=== PATIENT | male | born 1940 | race Caucasian/White ===

== ENCOUNTER 2020-01-19 03:59 | Inpatient (IN) | payer OTHER ==
[2020-01-19 04:21] VITALS: BMI 25.8
[2020-01-19 05:20] LABS: BASO % 0.1 % (0-2.0); HEMATOCRIT 33.3 % (35.4-49); HEMOGLOBIN 10.6 GM/dL (11.7-16.9); LYMPH % 3.4 % (8-40); MCH 23.5 pg (25.7-33.7); MCHC 31.7 g/dl (32.0-35.9); MEAN CELL VOLUME 74.1 fl (80-96); MEAN PLT VOLUME 7.3 fl (7.5-11.1); MONO % 2.8 % (3.8-10.2); NEUT % 93.7 % (42.8-82.8); PLATELET COUNT 453 K/MM3 (134-434); WHITE BLOOD COUNT 29.5 K/mm3 (4.0-10.0)
[2020-01-19 05:35] LABS: INR 1.1 (0.83-1.09)
[2020-01-19 05:38] LABS: ACTIVATED PTT 37.8 SECONDS (25.2-36.5)
[2020-01-19 05:50] LABS: ALBUMIN 3.3 g/dl (3.4-5.0); ALK PHOS 165 U/L (45-117); ANION GAP 14 MMOL/L (8-16); BILIRUBIN,TOTAL 0.4 mg/dL (0.2-1); CALCIUM 10.1 mg/dL (8.5-10.1); CHLORIDE 105 mmol/L (98-107); CO2 19 mmol/L (21-32); CREATININE 4.6 mg/dL (0.55-1.3); GLUCOSE,RANDOM 159 mg/dL (74-106); POTASSIUM 5.4 mmol/L (3.5-5.1); SGOT/AST 25 U/L (15-37); SGPT/ALT 29 U/L (13-61); SODIUM 138 mmol/L (136-145); TOT PROT 8.3 g/dl (6.4-8.2)
[2020-01-19] MEDS ORDERED: SODIUM CHLORIDE 1,000 ML IV STA ×2 (05:57→06:10)
[2020-01-19] MEDS ORDERED: DEXTROSE 5%-NORMAL SALINE 1,000 ML IV ONE (06:02)
[2020-01-19] MEDS ORDERED: CEFTRIAXONE 1 GM in DEXTROSE 5%-WATER - 50 ML IVPB ONE (06:02)
[2020-01-19] MEDS ORDERED: CEFTRIAXONE 1 GM/50 ML BAG ONE (06:14)
[2020-01-19 06:30] LABS: PLATELET ESTIMATE SLT INCREASE
[2020-01-19 06:35] LABS: BLOOD UREA NITROGEN 129.7 mg/dL (7-18)
[2020-01-19 06:54] LABS: EPI CELLS >36 /uL (0-25.1); HYALINE CASTS 37 /uL (0-3.1); URINE APPEARANCE TURBID; URINE BILIRUBIN NEGATIVE (NEGATIVE); URINE COLOR YELLOW; URINE GLUCOSE (UA) NEGATIVE (NEGATIVE); URINE KETONE NEGATIVE (NEGATIVE); URINE LEUK ESTERASE 3+ (NEGATIVE); URINE NITRITE NEGATIVE (NEGATIVE); URINE PROTEIN 2+ (NEGATIVE); URINE UROBILINOGEN 0.2 mg/dL (0.2-1.0); URINE WBC 33285 /uL (0-25.8)
[2020-01-19] MEDS ORDERED: SODIUM CHLORIDE 1,000 ML IV SCH (09:00)
[2020-01-19] MEDS ORDERED: PIPERACILLIN/TAZOB 4.5 GM 4.5 GM in DEXTROSE 5%-WATER 100 ML IVPB ONE (10:26)
[2020-01-19] MEDS ORDERED: VANCOMYCIN 1 GM in D5W (PRE-DOCKED) 1,000 MG/250 ML IVPB ONE (10:26)
[2020-01-19 10:32] LABS: URINE RBC 792.6 /uL (0-23.9)
[2020-01-19] MEDS ORDERED: PIPERACILLIN/TAZOB 4.5 GM 4.5 GM/100 ML BAG IVPB ONE (11:49)
[2020-01-19] MEDS ORDERED: VANCOMYCIN 1 GRAM (PRE-DOCKED) 1,000 MG/250 ML BAG IVPB ONE ×2 (11:49→11:50)
[2020-01-19 18:52] LABS: YEAST NEGATIVE (NEGATIVE)
[2020-01-19 21:52] VITALS: TEMP 97.5
[2020-01-19 23:57] VITALS: BP 156/87; PULSE 92
== END 2020-01-19 23:56 | disposition short-term general hospital (02) | DRG 469 ==
LOC: JER 03:59 → JERBED 08:39
DX: N17.9 Acute kidney failure, unspecified (principal); N39.0 Urinary tract infection, site not specified; R22.9 Localized swelling, mass and lump, unspecified; R64 Cachexia; Z68.25 Body mass index [BMI] 25.0-25.9, adult; E87.5 Hyperkalemia; E83.39 Other disorders of phosphorus metabolism; C43.9 Malignant melanoma of skin, unspecified; E87.2 Acidosis; D64.9 Anemia, unspecified; N13.30 Unspecified hydronephrosis; N43.3 Hydrocele, unspecified
CPT/HCPCS: 36415; 70450-TC; 71045-TC-FY; 72125-TC; 74176-TC; 80053; 81003; 82550; 83605; 84484; 85025; 85610; 85730; 87086; 87186; 87205; 93005; 93010; 99285-25